=== PATIENT | male | born 1960 | race Caucasian/White ===

== ENCOUNTER 2019-01-19 12:40 | Day surgery (SDC) | payer OTHER ==
[~2019-01-19] VITALS: Ht 154.9 cm; Wt 65.8 kg
[2019-01-19] VITALS (12 sets, daily range): BP systolic 98–156; BP diastolic 58–85; PULSE 83–99; RESP 13–20; Ht 154.9 cm; Wt 65.8 kg
[~2019-01-19 12:40] MED LIST: CLINDAMYCIN 600 MG/D5W (PMX) 50 ML IVPB SCH; SOD CHLORIDE 0.9% 1,000 ML IV SCH
[2019-01-19] MEDS ORDERED: SOD CHLORIDE 0.9% 1,000 ML IV SCH (13:00)
[2019-01-19] MEDS ORDERED: VANCOMYCIN 1 GM (PMX) 250 ML IVPB ONE (13:00)
[2019-01-19] MEDS ORDERED: FLUT9.9S NASAL (13:46)
[2019-01-19] MEDS ORDERED: LORA10TA3 PO (13:47)
[2019-01-19] MEDS ORDERED: ALBU8.5H8 INH (13:47)
--- NOTE | 2019-01-19 15:01 | HPN ---
Date/Time of Note Date/Time of Note DATE: 01/19/19 TIME: 15:01 Interval H&P Admission Note Pt. seen H&P reviewed: No system changes PROMISE CARNES MD January 19, 2019 15:01
--- NOTE | 2019-01-19 15:02 | PREAC ---
Date/Time of Note Date/Time of Note DATE: 01/19/19 TIME: 15:01 Anesthesia Eval and Record Evaluation Time Pre-Procedure Interview DATE: 01/19/19 TIME: 15:01 Age 58 Sex male NPO: 8 hrs Preoperative diagnosis RIGHT BACK MASS Planned procedure eXCISION RIGHT BACK MASS Past Medical History Past Medical History: Includes Cardio: CABG (ATRIA SEPTUM DEFECT REPAIR) Pulm: Asthma Surgery & Anesthesia Issues No known issue Meds Anticoagulation: No Beta Gigi within 24 hr: No Reason Beta Gigi not given: Pt. not on B-Gigi Reported Medications Albuterol Sulfate* (Proair HFA*) 8.5 Gm Hfa.aer.ad, 2 PUFF INH Q4H PRN for WHEEZING AND SOB, #1 INHALER 01/19/19 Loratadine* (Loratadine*) 10 Mg Tablet, 10 MG PO DAILY, #30 TAB 01/19/19 Fluticasone Propionate (Flonase Allergy Relief) 9.9 Ml [place].susp, 1 SPRAY NASAL DAILY, #1 BOTTLE TO EACH NOSTRIL 01/19/19 Current Medications Sodium Chloride 1,000 ml @ 75 mls/hr [id number] IV ; Start 01/19/19 at 13:00; St op 01/19/19 at 23:59 Meds reviewed: Yes Allergies Coded Allergies: Penicillins (Verified Allergy, Unknown, 01/19/19) Allergies Reviewed: Yes Labs/Studies Labs Reviewed: Reviewed by anesthesiologist test: N/A Studies: ECG (SR) Pre-procedure Exam Last vitals Vital Signs Date Temp Pulse Resp B/P (MAP) Pulse Ox O2 O2 Flow FiO2 Time Delivery Rate 01/19/19 98.5 95 16 156/85 100 Room Air 14:03 (108) Airway: Adequate mouth opening Mallampati: Mallampati I Teeth: Normal Lung: Normal Heart: Normal ASA Physical Status ASA physical status: 2 Emergency: None Planned Anesthetic General/MAC: MAC, TIVA Planned Pain Management Parenteral pain med Pre-operative Attestations Prior to commencing anesthesia and surgery, the patient was re-evaluated, there was verification of: *The patient's identity *The results of appropriate recent lab work and preoperative vital signs *The above evaluation not changing prior to induction *Anesthetic plan, risk benefits, alternative and complications discussed with patient/family; questions answered; patient/family understands, accepts and wishes to proceed. KELLIE MORA MD January 19, 2019 15:02
[2019-01-19] MEDS ORDERED: PROPOFOL 20 ML ONE (15:08)
[2019-01-19] MEDS ORDERED: MIDAZOLAM 1 MG/ML 2 ML INJ ONE (15:08)
[2019-01-19] MEDS ORDERED: FENTAnyl 50 MCG/ML VIAL ONE (15:08)
[2019-01-19] MEDS ORDERED: CEFAZOLIN 1 GM INJ ONE (15:08)
[2019-01-19] MEDS ORDERED: BUPIVACAINE 0.25% (MPF) 30 ML INJ ONE (15:09)
[2019-01-19] MEDS ORDERED: LIDOCAINE 1%/EPI (1:100,000) (MDV) 20 ML ONE (15:09)
[2019-01-19] MEDS ORDERED: DIPHENHYDRAMINE 50 MG INJ IV PRN (15:30)
[2019-01-19] MEDS ORDERED: FENTAnyl 50 MCG/ML VIAL IV PRN ×3 (15:30)
[2019-01-19] MEDS ORDERED: hydrALAzine 20 MG INJ IV PRN (15:30)
[2019-01-19] MEDS ORDERED: LABETALOL HCL 20MG INJ IV PRN (15:30)
[2019-01-19] MEDS ORDERED: MEPERIDINE 25 MG INJ IV PRN (15:30)
[2019-01-19] MEDS ORDERED: KETOROLAC 30 MG INJ IV PRN (15:30)
[2019-01-19] MEDS ORDERED: ONDANSETRON 4 MG INJ IV PRN ×2 (15:30→16:00)
[2019-01-19] MEDS ORDERED: OXYCODONE/ACETAMINOPHEN (5/325) TAB PO PRN ×2 (15:30)
[2019-01-19] MEDS ORDERED: HYDROmorphONE 1 MG/5 ML IV SYRINGE IV PRN ×3 (15:30)
--- NOTE | 2019-01-19 15:49 | OPR ---
Date/Time of Note Date/Time of Note DATE: 01/19/19 TIME: 15:41 Operative Report Procedure Date: January 19, 2019 Preoperative Diagnosis Infected sebaceous cyst of the back Postoperative Diagnosis Infected sebaceous cyst of the back Operation/Procedure Performed Excision of site of prior infected sebaceous cyst of the back Surgeon see signature line Senior Strategy Manager None Anesthesia Type: BEVERLEY Anesthesiologist: KELLIE MORA MD Estimated Blood Loss: minimal Transfusion none Specimen Skin, subcutaneous tissue and possible mass of prior infected sebaceous cyst site Grafts/Implants none Complications none Pt Condition Post Procedure: stable Disposition: PACU Indications The patient is a 58-year-old male who presented to the office complaining of a mass on the right flank/back area he stated that this is been present for quite some time but recently opened up and started draining and bleeding. On exam in the office, there was an approximately 2 cm indurated area which was spontaneously draining. On manual drainage appeared consistent with sebum and an infected sebaceous cyst. Patient was on oral antibiotics. Upon resolution of his acute infection he was scheduled for elective excision for symptom relief, prevention of further infection recurrence, and definitive pathological diagnosis. On the day of surgery, in the holding area, it was noted that the infection had fully resolved and the mass was no longer palpable. There was induration and hyperpigmentation of the prior drainage site. Options were discussed with the patient including continued observation with risk of recurrent infection versus excision of the site. All risks and benefits were discussed. All risks and benefits of the procedure including, but not limited to: Wound infection, excessive bleeding, postoperative seroma/hematoma formation, mass recurrence, etc. were all explained to the patient in full detail. The patient fully understood and wished to proceed with the procedure to excise the site. Informed consent was obtained. Procedure Description Patient was brought to the operating room placed in the left lateral decubitus position with the right side up on the operating room table. Bilateral sequential compression devices were placed on both lower extremities. A dose of broad-spectrum perioperative intravenous antibiotics was given. The prior drainage and the mass site which was located in the right lower back/flank area was preoperatively marked and confirmed with the patient in the holding area. After achieving adequate sedation the right back and flank were then prepped and draped in standard surgical fashion. After performance of the surgical timeout, 1% lidocaine with epinephrine was injected around the area creating a field block. An elliptical incision was then made around the site of the prior mass including the prior drainage site using a 15 blade scalpel. Incision was carried down through the skin and dermis into the subcutaneous tissues. Fibrotic tissue was encountered in the dermis and superficial subcutaneous tissues. Upon reaching the deep subcutaneous tissue circumferentially the excisional site was then transected at its base and passed off the field as specimen. Measured approximately 3 cm x 1 cm. Marking sutures were used to ramos the anterior and superior aspects. Hemostasis was inspected for and noted to be total. The wound cavity was irrigated and the irrigant returned clear. The wound was then reapproximated in layers using interrupted 3-0 Vicryl sutures for the dermal layer. Skin was reapproximated using a running subcuticular 3-0 Monocryl suture. Further local anesthesia of 0.25% Marcaine was injected around the incision site. Incision was cleaned and Dermabond was applied. The patient was transferred to the recovery room in stable condition. All counts were correct at the end the case x2. PROMISE CARNES MD January 19, 2019 15:49
[2019-01-20] MEDS ORDERED: IBUPROFEN 600 MG TAB PO PRN
--- NOTE | 2019-01-20 08:40 | PAC ---
Date/Time of Note Date/Time of Note DATE: 01/20/19 TIME: 08:40 Post-Anesthesia Notes Post-Anesthesia Note Last documented vital signs Vital Signs Date Temp Pulse Resp B/P (MAP) Pulse Ox O2 O2 Flow FiO2 Time Delivery Rate 01/19/19 97.1 83 18 113/71 99 Room Air 16:42 (85) Activity: WNL Respiratory function: WNL Cardiovascular function: WNL Mental status: Baseline Pain reasonably controlled: Yes Hydration appropriate: Yes Nausea/Vomiting absent: No KELLIE MORA MD January 20, 2019 08:40
== END 2019-01-19 18:15 | disposition home or self-care (01) ==
LOC: SDS 12:40
PROVIDERS: ATTEND Surgery
DX: L90.5 Scar conditions and fibrosis of skin (principal); L72.3 Sebaceous cyst; J45.909 Unspecified asthma, uncomplicated
CPT/HCPCS: 11403; J0690; J2250; J3010; Z7512; Z7610; 88307; 88312